=== PATIENT | female | born 1980 | race Caucasian/White ===

== ENCOUNTER → 2020-04-28 | Outpatient (CLI) | payer MEDICAID ==
[2014-04-19 21:22] VITALS: BP 133/79
--- NOTE | 2020-04-28 17:32 | KCIC ---
STUDY: MRI of the left shoulder without contrast INDICATION: Left shoulder pain. Limited range of motion. COMPARISON: Left shoulder radiographs 08/12/2019 TECHNIQUE: Multiplanar MR imaging of the left shoulder performed without the use of intravenous or intra-articular contrast. FINDINGS: The study is limited due to motion despite repeat sequence acquisition. AC joint: Minimal AC joint arthrosis. Minimal edema/fluid signal within the subacromial subdeltoid bursa but not indicative of bursitis. Rotator cuff: Even with motion artifact it can be confidently determined that there is no high-grade or full-thickness tear. No advanced tendinosis is appreciated. Normal muscular bulk and signal. Labrum: No definite tear. Probable thin sublabral recess, image 12 series 10. Long head biceps tendon: Intact and normally located. Cartilage: Poorly evaluated but no full-thickness defect is seen. Bones: No acute fracture or aggressive marrow signal abnormality. Miscellaneous: Mild edema-like signal at the rotator interval. The axillary soft tissues are within normal limits. No significant shoulder joint effusion. Impression: 1. The study is limited due to motion despite attempts at repeat imaging. 2. No abnormality seen to involve the rotator cuff, long head biceps tendon or labrum to account for the patient's symptoms. 3. Mild edema-like signal at the rotator interval is nonspecific but adhesive capsulitis could present in this manner (image 14 series 10). Electronically signed by: TREY RHODES MD (04/28/2020 5:30 PM) [id number]
== END | disposition home or self-care (01) ==
LOC: KCIC MRI 12:46
PROVIDERS: ATTEND Family Medicine
DX: M19.012 Primary osteoarthritis, left shoulder (principal); M75.02 Adhesive capsulitis of left shoulder
CPT/HCPCS: 73221

== ENCOUNTER → 2020-05-31 | Outpatient (CLI) | payer MEDICAID ==
[2014-04-19 21:22] VITALS: BP 133/79
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
== END ==
LOC: KCIC MRI 13:12
PROVIDERS: ATTEND Physician Assistant
DX: S69.92XA Unspecified injury of left wrist, hand and finger(s), initial encounter (principal); M67.432 Ganglion, left wrist; X58.XXXA Exposure to other specified factors, initial encounter; Y93.89 Activity, other specified; Y92.89 Other specified places as the place of occurrence of the external cause; Y99.8 Other external cause status
CPT/HCPCS: 73221

== ENCOUNTER → 2020-06-02 | Outpatient (CLI) | payer MEDICAID ==
[2014-04-19 21:22] VITALS: BP 133/79
--- NOTE | 2020-06-02 15:56 | KCIC ---
MRI Cervical Spine Without Contrast History:Cervical radiculopathy, posterior neck pain, headaches, left upper extremity pain and numbness Technique: Multiplanar, multi sequential noncontrast MR imaging was performed of the cervical spine. Comparison: None Findings: There is motion degradation. Cervical cord caliber is within normal limits without defined or expansile signal abnormality, limited evaluation for subtle signal change due to motion artifact. Cervical vertebral body stature and AP alignment are preserved. There is moderate degenerative disc disease C6-7. There is trace C6-7 endplate edema likely reactive/degenerative in etiology. There is moderate mucosal thickening of the visualized inferior sphenoid sinus. C2-C3: Neural foramina and spinal canal are adequate. C3-C4: Spinal canal and neural foramina are adequate. C4-C5: Spinal canal and neural foramina are adequate. C5-C6: Neural foramina and spinal canal are adequate. C6-C7: There is disc osteophyte complex and bulge. There is buckling of the ligamentum flavum. Central canal is narrowed to about 6 to 7 mm, effacement of ventral and dorsal subarachnoid space. There is uncovertebral degenerative change, also degree of facet degenerative change. There is likely at least moderate left and probable moderate to severe right neural foramina compromise. C7-T1: Spinal canal is adequate. There is mild uncovertebral degenerative change. There is bilateral facet degenerative change. There is probable mild narrowing of the left neural foramen, right neural foramen probably adequate. Impression: 1. There is spinal stenosis on the order of 6 to 7 mm at C6-7 in part by disc osteophyte complex and bulge. There is bilateral C6-7 neural foramina compromise in part from facet and uncovertebral degenerative change. There is moderate C6-7 degenerative disc disease and mild spondylosis. 2. There is inferior sphenoid sinus mucosal thickening. Electronically signed by: Michael Eason MD (06/02/2020 3:53 PM) [facility]
== END ==
LOC: KCIC MRI 12:53
PROVIDERS: ATTEND Physician Assistant
DX: M50.123 Cervical disc disorder at C6-C7 level with radiculopathy (principal); M48.02 Spinal stenosis, cervical region; M47.812 Spondylosis without myelopathy or radiculopathy, cervical region; G56.02 Carpal tunnel syndrome, left upper limb; M25.78 Osteophyte, vertebrae
CPT/HCPCS: 72141

== ENCOUNTER → 2020-07-23 | Outpatient (CLI) | payer MEDICAID ==
[2014-04-19 21:22] VITALS: BP 133/79
[~2020-07-23] MED LIST: LEXAPRO5 MG PO; MULT-445 PO; QUET300T5 PO; methylPREDNISolone ACETATE 40 MG/ML VIAL. ONE; methylPREDNISolone ACETATE 80 MG/ML VIAL. ONE
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
== END | disposition home or self-care (01) ==
LOC: PNCL 08:49
PROVIDERS: ATTEND Anesthesiology
DX: M54.5 Low back pain (principal); M79.605 Pain in left leg; M79.604 Pain in right leg; M54.2 Cervicalgia; M25.512 Pain in left shoulder; M25.511 Pain in right shoulder; M19.90 Unspecified osteoarthritis, unspecified site; F17.210 Nicotine dependence, cigarettes, uncomplicated; Z90.49 Acquired absence of other specified parts of digestive tract; Z90.710 Acquired absence of both cervix and uterus; Z98.890 Other specified postprocedural states; Z88.0 Allergy status to penicillin; Z88.5 Allergy status to narcotic agent; Z88.8 Allergy status to other drugs, medicaments and biological substances; Z79.899 Other long term (current) drug therapy
CPT/HCPCS: 62323; J1030; J1040

== ENCOUNTER → 2020-08-30 | Outpatient (CLI) | payer MEDICAID ==
[2014-04-19 21:22] VITALS: BP 133/79
[~2020-08-30] MED LIST changes: +ACET325T9 PO; +ACET500T68 PO; +ALBU2.5V8 IH; +IOHEXOL 180 MG/ML 10 ML VIAL. ONE; +MAGN580T4 PO; +METH-562 PO; +NAPR220C4 PO; +OXYC1TAB15 PO; +PRAZ1CAP2 PO; +SENN1TAB99 PO; +VENTOLIN HFA18 GM INH
--- NOTE | 2020-08-30 10:24 | PDOC ---
Progress Note - Pain Clinic Date of Service: DOS: DATE: 08/30/20 TIME: 10:18 Diagnosis: Dx: Lumbar radiculopathy with lumbar degenerative disc disease Cervical radiculopathy with cervical degenerative disc disease History or Present Illness: HPI: 40-year-old female returns follow-up status post lumbar epidural steroid action x1. Patient reports that she was initially doing better but injured her back when she was standing up from a seated position and struck her low back on the edge of the chair with some force. Prior to that patient was doing better with distance walking sleeping better at night standing for longer periods doing household activities greater ease and comfort and traveling with greater ease as well. Pain is returned now after the injury of her back which was about 2 weeks ago. Patient did have an MRI scan dated July 29 showing bilateral foraminal stenoses with impingement of the exiting L5 nerve roots at L5-S1 also L4-5 showing mild bilateral neuroforaminal narrowing with encroachment of the exiting L4 nerve roots. We discussed the results of the MRI scan with the patient today. Patient does have some pain base the neck and shoulders as previously. Patient reports no new motor or sensory deficits no new bowel or bladder incontinence or other complaints. Physical Exam: VS: Blood pressure is 116/78 pulse 78 respirations 18 temperature 97.1 F height is 5 foot 1 inch weight 166 pounds PE: PHYSICAL EXAMINATION: GENERAL: The patient is awake, alert, oriented, appropriate, very pleasant demeanor HEENT: Shows normocephalic, atraumatic. Extraocular movements are intact and symmetrical. Oral cavity: Mucous membranes moist and pink. NECK: Shows anterior throat supple without palpable lymphadenopathy noted. Swallow reflex symmetrical. CHEST: Shows normal on inspection. Breath sounds are clear bilaterally. HEART: Shows S1, S2 clear. No murmurs auscultated. ABDOMEN: Soft, nontender, nondistended, obese. No palpable organomegaly is noted. No rebound or guarding demonstrated. BACK: Shows spine grossly in the midline. Normal-appearing cervical lordotic curvature. There is slightly increased thoracic kyphosis, some minor flattening of the lumbar lordotic curvature. Lumbar paraspinous muscles show symmetrical on inspection, on palpation shows some moderate tenderness diffusely throughout the upper, middle and lower distribution of the paraspinous muscles without specific trigger points, without radiation of pain. The patient has good rotational motion of the lumbar spine, both laterally as well as extension and flexion without significant difficulty. No tenderness over the spinous processes, sacrum or sacroiliac regions. EXTREMITIES: Lower extremities show deep tendon reflexes 1+ in the patellar and tendo calcaneus tendons. Motor exam is 4 on a scale of 5 with right dorsiflexion, extension, quadriceps and hamstring flexion and 4/5 on the left. Peripheral pulses are 1+ posterior tibial. No peripheral edema is noted bilaterally. Lower extremities are warm and dry to touch, equal in color and appearance. SKIN: Shows warm and dry, good turgor. No edema. No sores, rashes or bruising throughout. Procedure: Procedure: Options were discussed with the patient. Patient will chart reviews her current medication regimen updated current review of systems updated today as well. We will proceed with a second lumbar epidural steroid traction today with fluoroscopic guidance. Risks were discussed including but not limited to: Blee ding, infection, possibility of epidural hematoma and subsequent neurological compromise, dural puncture, headaches, spinal cord and/or nerve damage, side effects of steroid medication, and poor results regarding pain control. Patient understands wished to proceed. Patient will return to clinic in approximate 2 weeks for follow-up, was counseled as return appointment activity level, and side effects to be aware of. Medication Injected: Med Injected: Procedure is lumbar epidural steroid injection under local anesthetic using sterile prep and drape at the L4-5 level using C-arm fluoroscopic guidance in both AP and lateral views medications injected is 120 mg Depo-Medrol + 10 mL preservative-free normal saline and 2 mL contrast- condition at discharge is stable patient tolerated procedure well had no complications. Condition at Discharge: Condition at Discharge: Condition at discharge stable, patient tolerated the procedure well and had no complications. ROMMEL SOTOMAYOR MD Aug 30, 2020 10:24
== END | disposition home or self-care (01) ==
LOC: PNCL 09:26
PROVIDERS: ATTEND Anesthesiology
DX: M51.16 Intervertebral disc disorders with radiculopathy, lumbar region (principal); M50.10 Cervical disc disorder with radiculopathy, unspecified cervical region; F17.210 Nicotine dependence, cigarettes, uncomplicated; Z79.899 Other long term (current) drug therapy; Z88.0 Allergy status to penicillin; Z88.5 Allergy status to narcotic agent; Z88.8 Allergy status to other drugs, medicaments and biological substances
CPT/HCPCS: 62323; J1030; J1040; Q9965

== ENCOUNTER → 2020-10-25 | Outpatient (CLI) | payer MEDICAID ==
[2014-04-19 21:22] VITALS: BP 133/79
[~2020-10-25] MED LIST changes: -ACET325T9 PO; -ACET500T68 PO; -ALBU2.5V8 IH; +BUPIVACAINE MPF 0.25% 10 ML VIAL. ONE; -MAGN580T4 PO; -METH-562 PO; -NAPR220C4 PO; -OXYC1TAB15 PO; -PRAZ1CAP2 PO; -SENN1TAB99 PO; -VENTOLIN HFA18 GM INH; -methylPREDNISolone ACETATE 40 MG/ML VIAL. ONE
--- NOTE | 2020-10-25 10:11 | PDOC ---
Progress Note - Pain Clinic Date of Service: DOS: DATE: 10/25/20 TIME: 10:08 Diagnosis: Dx: Lumbar radiculopathy with lumbar degenerative disc disease Cervical radiculopathy cervical degenerative disc disease History or Present Illness: HPI: 40-year-old female returns follow-up status post lumbar epidural steroid action x2. Patient reports about 20% improvement overall with some minimal decrease in pain after last injection. Patient reports the pain is in the low back rating left posterior gluteus posterior lateral thigh lateral anterior thigh anteromedial thigh medial lower leg as well as the posterior calf patient wanted aching and sharp tingling burning and stabbing worse with repetitive motions bending stooping which she is required to do at her place of employment. P atient reports her pain is a 9 on scale 10 is worse with the past week 7 on average 5 its least is a 7 today patient scribes as aching and sharp in the low back rating the left lower extremity and posterior gluteus posterior thigh lateral thigh anterior thigh posterior calf patient reports a stabbing pain that is tingling and worse with walking standing better with sitting or laying down generally does not awaken her from sleep at night. Patient reports no new motor or sensory deficits no new bowel or bladder incontinence or other complaints. Physical Exam: VS: Blood pressure is 120/80 pulse 77 respirations 18 temperature 98.1 F height 5 foot 1 inch which is 172 pounds. PE: PHYSICAL EXAMINATION: GENERAL: The patient is awake, alert, oriented, appropriate, very pleasant demeanor HEENT: Shows normocephalic, atraumatic. Extraocular movements are intact and symmetrical. Patient wearing eyeglasses. Oral cavity: Mucous membranes moist and pink. Dentition is intact. NECK: Shows anterior throat supple without palpable lymphadenopathy noted. Swallow reflex symmetrical. CHEST: Shows normal on inspection. Breath sounds are clear bilaterally, no rales or rhonchi. HEART: Shows S1, S2 clear. No murmurs auscultated. ABDOMEN: Soft, nontender, nondistended, obese. No palpable organomegaly is noted. No rebound or guarding demonstrated. BACK: Shows spine grossly in the midline. Normal-appearing cervical lordotic curvature. There is slightly increased thoracic kyphosis, some minor flattening of the lumbar lordotic curvature. Lumbar paraspinous muscles show symmetrical on inspection, on palpation shows some moderate tenderness diffusely throughout the upper, middle and lower distribution of the paraspinous muscles without specific trigger points, without radiation of pain. The patient has good rotational motion of the lumbar spine, both laterally as well as extension and flexion without significant difficulty. No tenderness over the spinous processes, sacrum or sacroiliac regions. EXTREMITIES: Lower extremities show deep tendon reflexes 1+ in the patellar and tendo calcaneus tendons. Motor exam is 4 on a scale of 5 with right dorsiflexion, extension, quadriceps and hamstring flexion and 4/5 on the left. Peripheral pulses are 1+ posterior tibial. No peripheral edema is noted bilaterally. Lower extremities are warm and dry to touch, equal in color and appearance. SKIN: Shows warm and dry, good turgor. No edema. No sores, rashes or bruising throughout. Procedure: Procedure: Options were discussed with the patient. Patient chart reviews her current medi cation regimen updated current review of systems updated today as well. We will proceed with a left L5-S1 transforaminal epidural injection today with fluoroscopic guidance. Risks were discussed including but not limited to bleeding infection possibility of epidural hematoma and subsequent neurological compromise dural puncture headache spinal cord and nerve damage side effects of steroid medication exposure to fluoroscopy potential injection of the vertebral artery at the level of permanent ischemic damage as well as poor results regarding pain control. Patient understands wished to proceed. Return to clinic in approximate 2 weeks for follow-up, was counseled as return appointment activity level and side effects beware. We will also order MRI scan lumbar spine today for follow-up she is only had plain films done at this point. Medication Injected: Med Injected: Under sterile prep and drape patient was placed in prone position using C-arm fluoroscopic guidance to identify the L5-S1 distribution oblique and slightly cephalad angled C arm. The left L5-S1 target was identified and using lidocaine for anesthetizing the skin 22-gauge Thea pencil point needle was then used to enter the skin and into the subcutaneous tissues using direct C-arm fluoroscopic guidance to guide the needle into the transforaminal aspect of the left L5-S1 vertebrae this was confirmed with lateral views showing the needle tip in the superior aspect of the paravertebral region. Aspiration was noted to be negative, -1.5 cc of contrast was then injected with good spread both medially into the epidural space as well as laterally along the nerve root without uptake and without distribution and uptake on digital subtraction. At this time, a solution containing 2 cc of 0.25% bupivacaine and 80 mg of Depo- Medrol was then injected. Needle was withdrawn and sterile bandage was applied. Patient tolerated procedure well had no immediate complications Condition at Discharge: Condition at Discharge: Condition at discharge stable, patient tolerated procedure well and had no complications. ROMMEL SOTOMAYOR MD Oct 25, 2020 10:11
--- NOTE | 2020-10-25 10:12 | PDOC4 ---
PROCEDURE Procedure Patient was consented for left L5-S1 transforaminal epidural steroid injection. This were discussed including but not limited to bleeding infection possibility of epidural hematoma and subsequent neurological compromise dural puncture headache spinal cord and/or nerve damage potential injection the vertebral artery at that level and permanent ischemic damage as well as side effects steroid medication opposed to fluoroscopy and poor results regarding pain control. Patient understands wished to proceed. Under sterile prep and drape patient was placed in prone position using C-arm f luoroscopic guidance to identify the L5-S1 distribution oblique and slightly cephalad angled C arm. The left L5-S1 target was identified and using lidocaine for anesthetizing the skin 22-gauge Thea pencil point needle was then used to enter the skin and into the subcutaneous tissues using direct C-arm fluoroscopic guidance to guide the needle into the transforaminal aspect of the left L5-S1 vertebrae this was confirmed with lateral views showing the needle tip in the superior aspect of the paravertebral region. Aspiration was noted to be negative, -1.5 cc of contrast was then injected with good spread both medially into the epidural space as well as laterally along the nerve root without uptake and without distribution and uptake on digital subtraction. At this time, a solution containing 2 cc of 0.25% bupivacaine and 80 mg of Depo- Medrol was then injected. Needle was withdrawn and sterile bandage was applied. Patient tolerated procedure well had no immediate complications ROMMEL SOTOMAYOR MD Oct 25, 2020 10:12
== END | disposition home or self-care (01) ==
LOC: PNCL 09:29
PROVIDERS: ATTEND Anesthesiology
DX: M51.16 Intervertebral disc disorders with radiculopathy, lumbar region (principal); M50.10 Cervical disc disorder with radiculopathy, unspecified cervical region; F17.210 Nicotine dependence, cigarettes, uncomplicated; Z79.899 Other long term (current) drug therapy; Z88.0 Allergy status to penicillin; Z88.5 Allergy status to narcotic agent; Z88.8 Allergy status to other drugs, medicaments and biological substances
CPT/HCPCS: 64483; J1040; J3490; Q9965

== ENCOUNTER → 2020-11-09 | Outpatient (CLI) | payer MEDICAID ==
[2014-04-19 21:22] VITALS: BP 133/79
[~2020-11-09] MED LIST changes: -BUPIVACAINE MPF 0.25% 10 ML VIAL. ONE; -IOHEXOL 180 MG/ML 10 ML VIAL. ONE; -methylPREDNISolone ACETATE 80 MG/ML VIAL. ONE
--- NOTE | 2020-11-09 11:25 | KCIC ---
MR LUMBAR SPINE WO [id number] History: Reason: LEFT LUMBAR RADICULOPATHY / Spl. Instructions: / History: 2019 injury. Left leg rad iates pain. Technique: Multiplanar, multi sequential MR imaging was performed of the lumbar spine. Comparison: None Findings: Normal vertebral body height and alignment. No fracture. Conus terminates at the normal location. No evidence of nerve root clumping. Bilateral small ovarian cystic lesions measure 1.3 on the right and approximately 1.9 on the left par tially imaged, likely ovarian follicles. L1-L2: No canal or neuroforaminal narrowing. L2-L3: No canal or neuroforaminal narrowing. L3-L4: Broad-based disc bulge. Mild facet arthropathy. No canal narrowing. Mild subarticular recess narrowing. No neuroforaminal narrowing. L4-L5: Broad-based disc bulge. Mild facet arthropathy. No canal narrowing. Mild subarticular recess narrowing. Superimposed right foraminal disc protrusion. Mild bilateral neuroforaminal narrowing. L5-S1: Central disc protrusion. Moderate facet arthropathy. No canal narrowing. Moderate bilateral n euroforaminal narrowing, left greater than right. Impression: 1. Multilevel lumbar spondylosis most prominent L5-S1. 2. Neuroforaminal narrowing most prominent L5-S1. Electronically signed by: Jorge Talley DO (11/09/2020 11:23 AM) [id number]
== END | disposition home or self-care (01) ==
LOC: KCIC MRI 08:31
PROVIDERS: ATTEND Anesthesiology
DX: M47.26 Other spondylosis with radiculopathy, lumbar region (principal); M48.061 Spinal stenosis, lumbar region without neurogenic claudication; F17.210 Nicotine dependence, cigarettes, uncomplicated; Z79.899 Other long term (current) drug therapy; Z88.0 Allergy status to penicillin; Z88.5 Allergy status to narcotic agent; Z88.8 Allergy status to other drugs, medicaments and biological substances
CPT/HCPCS: 72148

== ENCOUNTER 2020-12-14 08:03 | Day surgery (SDC) | payer MEDICAID ==
[~2020-12-14] VITALS: Ht 152.4 cm; Wt 77.0 kg
[~2020-12-14 08:03] MED LIST changes: +ACET325T9 PO; +ACET500T68 PO; +ALBU2.5V8 IH; +BACITRACIN 50,000 UNIT in IV NORMAL SALINE 1000ML BAG 1,000 ML IRR ONE; +BUPIVACAINE MPF 0.5% 30 ML VIAL. ONE; +CLINDAMYCIN 900MG PREMIX 50 ML IV PRN; +GELATIN SPONGE SIZE 100. ONE; +HYDROmorphone 2 MG/ML VIAL IVP PRN; +IV RINGERS,LACTATED 1000ML 1,000 ML IV SCH; +LIDOCAINE 1%/EPI 1:100,000 20 ML VIAL. ONE; +MAGN580T4 PO; +MORPHINE SULFATE 2 MG/ML VIAL. IVP PRN; +NAPR220C4 PO; +PRAZ1CAP2 PO; +PROCHLORPERAZINE 10 MG/2 ML VIAL. IVP PRN; +THROMBIN TOPICAL 20,000 UNIT SPRAY.SYRN KIT TP ONE; +VENTOLIN HFA18 GM INH; +fentaNYL PF VIAL 100 MCG/2 ML VIAL IVP PRN
[2020-12-14] MEDS ORDERED: SUCCINYLCHOLINE 200 MG/10 ML VIAL. ONE (09:09)
[2020-12-14] MEDS ORDERED: PROPOFOL 10 MG/ML (20ML) VIAL. IV ONE (09:09)
[2020-12-14] MEDS ORDERED: LIDOCAINE 2% PF 5 ML VIAL. ONE (09:09)
[2020-12-14] MEDS ORDERED: ROCURONIUM 50 MG/5 ML VIAL. ONE (09:10)
[2020-12-14] MEDS ORDERED: fentaNYL PF VIAL 250 MCG/5 ML VIAL ONE (09:10)
[2020-12-14] MEDS ORDERED: MIDAZOLAM HCL/PF 2 MG/2 ML VIAL. ONE (09:10)
[2020-12-14] MEDS ORDERED: 0.9 % SODIUM CHLORIDE 20 ML VIAL. IJ ONE (09:15)
[2020-12-14] MEDS ORDERED: REMIFENTANIL 1 MG VIAL. IV ONE (09:15)
[2020-12-14] MEDS ORDERED: PHENYLEPHRINE 10 MG/ML VIAL. ONE (09:52)
[2020-12-14] MEDS ORDERED: DEXAMETHASONE SOD PHOS 4 MG/ML VIAL ONE (11:01)
[2020-12-14] MEDS ORDERED: ONDANSETRON PF 4 MG/2 ML VIAL. ONE (11:01)
[2020-12-14] MEDS ORDERED: SEVOFLURANE > 120 MINUTES. IH ONE (11:15)
[2020-12-14] MEDS ORDERED: PROPOFOL 100 ML IV ONE (11:42)
--- NOTE | 2020-12-14 12:43 | PDOC ---
BRIEF OPERATIVE NOTE Date: Dec 14, 2020 Pre-Op Diagnosis lumbar radiculopathy, L5-S1 foraminal stenosis Post-Op Diagnosis same Procedure Performed left L5-S1 microdecompression Anesthesia Type: General Blood Loss 10mL Specimens Obtained decompression Findings stenosis left L5-S1, neuromonitoring at least baseline throughout procedure Complications none apparent ANN FOY MD Dec 14, 2020 12:42
[2020-12-14] MEDS ORDERED: fentaNYL PF VIAL 100 MCG/2 ML VIAL ONE (12:46)
[2020-12-14] MEDS ORDERED: OXYC1TAB15 PO (13:14)
[2020-12-14] MEDS ORDERED: METH-562 PO (13:16)
[2020-12-14] MEDS ORDERED: SENN1TAB99 PO (13:18)
[2020-12-14 13:35] VITALS: BP 102/45
[2020-12-14] MEDS ORDERED: oxyCODONE/APAP 5/325 1 TAB TABLET PO ONE (13:45)
--- NOTE | 2020-12-14 13:50 | OP ---
DATE OF SURGERY: 12/14/2020 SURGEON: Too Zayas MD FLOTATION OPERATOR: None. PREOPERATIVE DIAGNOSIS: Left L5-S1 foraminal stenosis with radiculopathy. POSTOPERATIVE DIAGNOSIS: Left L5-S1 foraminal stenosis with radiculopathy. ANESTHESIA: General. COMPLICATIONS: None, intraprocedurally. INDICATION FOR PROCEDURE: The patient is a 40-year-old female who presents with intractable lumbar radiculopathy localized to stenosis on the left, L5-S1. This has been refractory to multiple conservative treatments. Please refer to the patient's chart for additional detail. DESCRIPTION OF PROCEDURE: After informed consent was obtained, the patient was brought into the operating room. She was placed under general anesthesia. Clindamycin was utilized as a prophylactic antibiotic. She was placed prone on the Jeramy frame and all pressure points were checked and padded appropriately. An appropriate incision location was localized with fluoroscopy. The lumbar region was prepped and draped in the usual sterile fashion. A vertical incision centered over the region of lumbar 5 and sacral 1 was made with a 10 blade scalpel. Monopolar electrocautery was utilized to dissect the avascular midline to approach the spinous processes of the lumbar 5 and sacral 1 and the dissection was carried out laterally to the left across the lamina at this location. The level was again verified with fluoroscopy prior to the initiation of decompression and a hemilaminotomy with medial facetectomy and foraminotomy was performed, the pneumatic drill as well as Kerrison rongeurs. The underlying ligament was gently dissected from the neural elements with blunt nerve hook and a Wharton and removed with Kerrison rongeurs. Upon completion of this, the adjacent neural elements were noted to be very well decompressed as verified with direct visualization as well as palpation with a blunt nerve hook and a Wharton. Upon completion of this procedure, hemostasis was achieved with FloSeal, cottonoids generous irrigation and some use of bipolar electrocautery. It was noted that neuromonitoring potentials were at least baseline throughout the entire procedure. The wound was generously irrigated with antibiotic irrigation prior to the final closure, the muscles and fascia were then reapproximated with 0 Vicryl in a simple interrupted fashion. Subcutaneous tissues were reapproximated with 2-0 Vicryl in interrupted inverted fashion. Skin was reapproximated with 4-0 Vicryl in a running subcuticular fashion. Mastisol and Steri-Strips were applied and the wound was dressed with Telfa, 4 x 4's, and Tegaderm. At the end of the procedure, all needle and sponge counts were correct x 2. The patient was extubated in the operating room and taken to recovery in stable condition. There were no intraprocedural complications apparent. JADYN/FRANK DR: Mona TID: [id number]
--- NOTE | 2020-12-20 11:25 | PATHOLOGY ---
[facility] Accession Number: [id number] . 01 Material submitted: . vertebral column - DECOMPRESSION . 01 Clinical history: . L5 S1 FORAMINAL STENOSIS LUMBAR . 02 Diagnosis: Bone and soft tissue "L5/S1" decompression: - Fragments of calcified bone, hyaline cartilage and fibrocartilage with reactive features. - Negative for malignancy. (MLK:pit; 12/17/2020) QTP 12/20/2020 1024 Local . 02 Electronically signed: . Tolu Coello MD, Pathologist NPI- [id number] . 01 Gross description: . The specimen is received in formalin, labeled "Fela Rucker", "decompression". Received are multiple fragments of slightly gritty, glistening pale white-lazcano bone/soft tissue, measuring 2.2 x 1.8 x 0.3 cm in aggregate dimensions. The specimen is filtered and entirely submitted in cassette A1, following light decalcification. (SNA; 12/16/2020) NAKIA/SHELLEY 12/16/2020 0852 Local . 02 Pathologist provided ICD-10: M99.73 . 02 CPT . 393608, [id number] Specimen Comment: A courtesy copy of this report has been sent to [phone] Specimen Comment: [id number] Specimen Comment: Report sent to DR FOY / DR BARRETT Performed at: 01 [facility] [address], [place] [id number] MD Anoop Navas MD Phone: [phone] Performed at: 02 [facility] [address] [place], [place] [id number] MD Jose Luis Watt MD Phone: [phone]
== END 2020-12-14 14:34 | disposition home or self-care (01) ==
LOC: SURG 08:03
PROVIDERS: ATTEND Neurological Surgery
DX: M48.07 Spinal stenosis, lumbosacral region (principal); M54.16 Radiculopathy, lumbar region; J44.9 Chronic obstructive pulmonary disease, unspecified; F41.9 Anxiety disorder, unspecified; F32.9 Major depressive disorder, single episode, unspecified; F17.210 Nicotine dependence, cigarettes, uncomplicated; Z90.49 Acquired absence of other specified parts of digestive tract; Z90.710 Acquired absence of both cervix and uterus; Z98.890 Other specified postprocedural states; Z88.0 Allergy status to penicillin; Z88.5 Allergy status to narcotic agent; Z88.8 Allergy status to other drugs, medicaments and biological substances; Z20.822 Contact with and (suspected) exposure to COVID-19
CPT/HCPCS: 36415; 63047; 86850; 86900; 86901; 87426; 97161; A4213; A4930; J0330; J1100; J2250; J2370; J2405; J2704; J3010; J3490; J7030; 76000; 88304; 88311; A4222; A4452

== ENCOUNTER → 2021-05-10 | Outpatient (CLI) | payer MEDICAID ==
[~2021-05-10] MED LIST changes: -BACITRACIN 50,000 UNIT in IV NORMAL SALINE 1000ML BAG 1,000 ML IRR ONE; -BUPIVACAINE MPF 0.5% 30 ML VIAL. ONE; -CLINDAMYCIN 900MG PREMIX 50 ML IV PRN; -GELATIN SPONGE SIZE 100. ONE; -HYDROmorphone 2 MG/ML VIAL IVP PRN; -IV RINGERS,LACTATED 1000ML 1,000 ML IV SCH; -LIDOCAINE 1%/EPI 1:100,000 20 ML VIAL. ONE; +METH-562 PO; -MORPHINE SULFATE 2 MG/ML VIAL. IVP PRN; +OXYC1TAB15 PO; -PROCHLORPERAZINE 10 MG/2 ML VIAL. IVP PRN; +SENN1TAB99 PO; -THROMBIN TOPICAL 20,000 UNIT SPRAY.SYRN KIT TP ONE; -fentaNYL PF VIAL 100 MCG/2 ML VIAL IVP PRN
--- NOTE | 2021-05-10 15:10 | KCIC ---
Examination: MRI of the right knee without contrast HISTORY: History of right knee pain, swelling COMPARISON: None available TECHNIQUE: Multiplanar, multisequence MR imaging of the right knee was performed without contrast FINDINGS: The anterior cruciate ligament is not completely identified proximally. Some of the fibers appear int act.. The posterior cruciate ligament appears intact. Mild increased T2 signal identified in the post erior horn of the medial meniscus. The lateral meniscus appears intact. The medial collateral ligamen t appears intact. Lateral collateral ligamentous complex including the fibular collateral ligament, b iceps femoris and popliteus tendon appears intact. The medial, lateral retinaculum appears intact. Small knee joint effusion. The extensor mechanism appears intact. Mild increased T2 signal identified in the Hoffa's fat pad deep to the infrapatellar tendon. Mild sup erficial fraying of cartilage identified in the medial, lateral, patellofemoral compartments. IMPRESSION: 1. The anterior cruciate ligament is not completely identified proximally. Some of the fibers appear intact. Differential includes chronic ACL tear or ACL insufficiency or attenuated proximal portion o f the anterior cruciate ligament. Correlate clinically. 2. Mild increased T2 signal identified in the posterior horn of the medial meniscus question a tear. 3. Mild increased T2 signal identified in the Hoffa's fat pad deep to the infrapatellar tendon could be secondary to impingement. 4. Small knee joint effusion. 5. Grade I chondromalacia medial, lateral, patellofemoral condyle. Electronically signed by: Hernan Anaya MD (05/10/2021 3:08 PM) [id number]
== END ==
LOC: KCIC MRI 13:08
PROVIDERS: ATTEND Family Medicine
DX: M25.461 Effusion, right knee (principal); M94.261 Chondromalacia, right knee; M79.4 Hypertrophy of (infrapatellar) fat pad
CPT/HCPCS: 73721

== ENCOUNTER → 2021-05-17 | Outpatient (CLI) | payer MEDICAID ==
--- NOTE | 2021-05-17 10:23 | KCIC ---
EXAMINATION: Magnetic resonance imaging (MRI) of the lumbar spine without contrast 05/17/2021 8:45 AM HISTORY: Lumbago, radiculopathy TECHNIQUE: Multiplanar multi-weighted MRI of the lumbar spine was performed without intravenous contr ast using the standard lumbar spine protocol. Contrast information: None administered. COMPARISON: MRI lumbar spine 11/09/2020 FINDINGS: There is 2 mm retrolisthesis of L3 on L4 and L4 on L5. Findings are stable. Vertebral bodies demonstr ate normal signal intensity on all sequences. There are no compression fractures. The conus medulla ris terminates at the level of L1. The distal spinal cord signal intensity is normal. There is disc desiccation at L3-L4, L4-L5 and L5-S1. Annular fissures identified at the L5-S1 level. Limited views of the abdomen and pelvis show no soft tissue abnormality. The aorta is normal. L1-L2: The disc is normal in configuration. There is no facet arthropathy. There is no neuroforaminal stenosis. There is no spinal canal stenosis. L2-L3: There is a right central disc extrusion extending to the right foraminal zone. No significant facet arthropathy. Mild to moderate right neural foraminal stenosis. There is right lateral recess st enosis. Mild spinal canal stenosis which is progressed. Findings are progressed since the prior exami [facility]. L3-L4: Mild disc bulge. Mild facet arthropathy. Mild bilateral neuroforaminal stenosis. Mild spinal c anal stenosis secondary to epidural lipomatosis/congenital narrowing of the spinal canal. Findings ar e stable. L4-L5: There is a circumferential disc bulge. There is central disc protrusion. Mild facet arthropath y. Moderate bilateral neuroforaminal stenosis, right greater than left. Mild spinal canal stenosis. F indings are stable. L5-S1: There is a disc bulge with central disc protrusion. Mild/moderate facet arthropathy ligamentum flavum infolding. Moderate severe bilateral neuroforaminal stenosis, stable from prior examination. No significant spinal canal stenosis. IMPRESSION: Mild degenerative changes of the lumbar spine with new right central disc extrusion at L2-3 extending into the right neural foramen resulting in mild to moderate right neuroforaminal stenosis and mild s dominci canal stenosis with right lateral recess stenosis. Electronically signed by: Amy Groves MD (05/17/2021 10:20 AM) [id number]
== END ==
LOC: KCIC MRI 08:04
PROVIDERS: ATTEND Neurological Surgery
DX: M47.27 Other spondylosis with radiculopathy, lumbosacral region (principal); M51.17 Intervertebral disc disorders with radiculopathy, lumbosacral region; M43.16 Spondylolisthesis, lumbar region; M48.07 Spinal stenosis, lumbosacral region
CPT/HCPCS: 72148

== ENCOUNTER → 2021-06-27 | Outpatient (CLI) | payer MEDICAID ==
[~2021-06-27] MED LIST changes: +BLAC40CA PO; +BREO ELLIPTA 21 EACH IH; +BUPR150T8 PO; +CYCL5TAB PO; +HYDR-2759 PO; +HYDR-2761 PO; +HYDR2TAB31 PO; +QUET400T4 PO; +SENN-200 PO
[2021-06-27 13:03] LABS: BASO # 0.1 x10^3/uL (0.0-0.2); BASO % 1 % (0-3); EOS # 0.2 x10^3/uL (0.0-0.7); EOS % 3 % (0-3); HEMATOCRIT 40.7 % (36.0-47.0); HEMOGLOBIN 13.8 g/dL (12.0-15.5); LYMPH # 3.1 x10^3/uL (1.0-4.8); LYMPH % 46 % (24-48); MEAN CORPUSCULAR HEMOGLOBIN 30 pg (25-35); MEAN CORPUSCULAR HGB CONC 34 g/dL (31-37); MEAN CORPUSCULAR VOLUME 89 fL (79-100); MONO # 0.5 x10^3/uL (0.0-1.1); MONO % 7 % (0-9); NEUT # 2.9 x10^3/uL (1.8-7.7); NEUT % 43 % (31-73); PLATELET COUNT 263 x10^3/uL (140-400); RED BLOOD COUNT 4.55 x10^6/uL (3.50-5.40); RED CELL DISTRIBUTION WIDTH 14.3 % (11.5-14.5); WHITE BLOOD COUNT 6.8 x10^3/uL (4.0-11.0)
[2021-06-27 13:19] LABS: ALBUMIN 3.6 g/dL (3.4-5.0); ALBUMIN/GLOBULIN RATIO 0.9 (1.0-1.7); CALCIUM 8.8 mg/dL (8.5-10.1); CREATININE 1.1 mg/dL (0.6-1.0); GFR 54.5; POTASSIUM 3.7 mmol/L (3.5-5.1); TOTAL BILIRUBIN 0.3 mg/dL (0.2-1.0); TOTAL PROTEIN 7.6 g/dL (6.4-8.2)
[2021-06-27 13:20] LABS: PROTHROMBIN TIME PATIENT 12.7 SEC (11.7-14.0)
[2021-06-28 01:12] LABS: HEMOGLOBIN A1C 5.6 % (4.8-5.6)
== END ==
LOC: SURGPAT 12:17
PROVIDERS: ATTEND Neurological Surgery
DX: M48.061 Spinal stenosis, lumbar region without neurogenic claudication (principal); Z01.812 Encounter for preprocedural laboratory examination
CPT/HCPCS: 36415; 80053; 83036; 85025; 85610; 85730; 87641

== ENCOUNTER → 2021-07-01 | Outpatient (CLI) | payer MEDICAID ==
[~2021-07-01] MED LIST changes: +HYDR-2765 PO
== END ==
LOC: LAB 12:58
PROVIDERS: ATTEND Neurological Surgery
DX: Z01.812 Encounter for preprocedural laboratory examination (principal); Z20.822 Contact with and (suspected) exposure to COVID-19; M48.061 Spinal stenosis, lumbar region without neurogenic claudication; M51.06 Intervertebral disc disorders with myelopathy, lumbar region
CPT/HCPCS: U0003; U0005

== ENCOUNTER 2021-07-05 07:29 | Day surgery (SDC) | payer MEDICAID ==
[2021-06-27 13:10] VITALS: BP 129/91
[~2021-07-05] VITALS: Ht 160 cm; Wt 70.9 kg
[~2021-07-05 07:29] MED LIST changes: -BLAC40CA PO; -BREO ELLIPTA 21 EACH IH; +BUPIVACAINE MPF 0.5% 30 ML VIAL. ONE; +CLINDAMYCIN 900MG PREMIX 50 ML IV PRN; -CYCL5TAB PO; +DEXAMETHASONE SOD PHOS 4 MG/ML VIAL ONE; +GELATIN SPONGE SIZE 100. ONE; +GLYCOPYRROLATE 1 MG/5 ML VIAL. ONE; -HYDR-2759 PO; -HYDR-2761 PO; -HYDR-2765 PO; -HYDR2TAB31 PO; +IV RINGERS,LACTATED 1000ML 1,000 ML IV SCH; +KETAMINE HCL IN NACL, ISO-OSM 50 MG/5 ML SYRINGE ONE; +LIDOCAINE 1%/EPI 1:100,000 20 ML VIAL. ONE; +LIDOCAINE 2% PF 5 ML VIAL. ONE; +MIDAZOLAM HCL/PF 2 MG/2 ML VIAL. ONE; +MORPHINE SULFATE 2 MG/ML INJ. IVP PRN; +NEOSTIGMINE METHYLSULFATE 5 MG/5 ML SYRINGE. ONE; +ONDANSETRON PF 4 MG/2 ML VIAL. ONE; +PHENYLEPHRINE 10 MG/ML VIAL. ONE; +PROPOFOL 10 MG/ML (20ML) VIAL. IV ONE; +PROPOFOL 50 ML IV ONE; +REMIFENTANIL 1 MG VIAL. IV ONE; +ROCURONIUM 50 MG/5 ML VIAL. ONE; -SENN-200 PO; +SEVOFLURANE > 120 MINUTES. IH ONE; +THROMBIN TOPICAL 20,000 UNIT SPRAY.SYRN KIT TP ONE; +VANCOMYCIN 1 GM VIAL. ONE; +fentaNYL PF VIAL 100 MCG/2 ML VIAL IVP PRN; +fentaNYL PF VIAL 100 MCG/2 ML VIAL ONE
[2021-07-05 07:57] VITALS: BP 140/80
[2021-07-05] MEDS ORDERED: PHENYLEPHRINE 10 MG/ML VIAL. ONE (08:13)
[2021-07-05] MEDS ORDERED: ePHEDrine PF IN SALINE 50 MG/10 ML SYRINGE. IV ONE (08:16)
[2021-07-05] MEDS ORDERED: fentaNYL PF VIAL 100 MCG/2 ML VIAL ONE (09:02)
--- NOTE | 2021-07-05 11:11 | PDOC4 ---
BRIEF OPERATIVE NOTE Date: Jul 05, 2021 Pre-Op Diagnosis recurrent disk herniation L5-S1, L5-S1 stenosis, lumbar radiculopathy Post-Op Diagnosis same Procedure Performed redo left L5-S1 hemilaminotomy with discectomy Surgeon Chana Sorority Mother Len Esteves Anesthesia Type: General Blood Loss 5mL Specimens Obtained disc and decompression Findings lateral recess and foraminal stenosis from disk herniation, scar tissue and degenerative changes, neuromontoring at least baseline throughout the procedure Complications none apparent ANN FOY MD Jul 05, 2021 11:11
[2021-07-05] MEDS ORDERED: PROCHLORPERAZINE 10 MG/2 ML VIAL. ONE (11:13)
[2021-07-05] MEDS ORDERED: SENN-200 PO (11:27)
[2021-07-05] MEDS ORDERED: CYCL5TAB PO (11:27)
[2021-07-05] MEDS ORDERED: HYDR2TAB31 PO (11:27)
[2021-07-05] MEDS: PROCHLORPERAZINE 10 MG/2 ML VIAL. IVP PRN ×2 (11:28→11:36)
[2021-07-05] MEDS ORDERED: HYDROmorphone 2 MG/ML VIAL ONE (11:31)
[2021-07-05] MEDS: HYDROmorphone 2 MG/ML VIAL IVP PRN ×2 (11:37→11:50)
[2021-07-05] MEDS ORDERED: HYDROmorphone 2 MG TABLET PO PRN (12:30)
[2021-07-05] MEDS ORDERED: SCOPOLAMINE 1.5MG PATCH. TD ONE ×2 (13:53→15:00)
[2021-07-05] MEDS ORDERED: ONDANSETRON PF 4 MG/2 ML VIAL. ONE (13:53)
[2021-07-05] MEDS ORDERED: ONDANSETRON PF 4 MG/2 ML VIAL. IVP ONE (14:10)
[2021-07-05] MEDS ORDERED: IV RINGERS,LACTATED 1000ML 1,000 ML IV ONE (15:00)
[2021-07-05] MEDS ORDERED: HYDROcodone/APAP 5/325MG 1 TAB TABLET PO ONE (15:30)
[2021-07-05 15:35] VITALS: BP 116/73
--- NOTE | 2021-07-07 16:15 | PATHOLOGY ---
[facility] Accession Number: [id number] . 01 Material submitted: . vertebral column - DISC AND DECOMPRESSION . 01 Clinical history: . LUMBAR STENOSIS LAMINECTOMY DISCECTOMY, LUMBAR FIVE SACRAL ONE . 02 Diagnosis: Segments of fibrocartilaginous, fibroadipose, and skeletal muscle tissue and bone, disc and decompression: - Degenerative changes of fibrocartilaginous tissue. - Focal fibrosis and foreign body giant cell reaction. . (JPM:[facility]; 07/07/2021) P 07/07/2021 1546 Local . 02 Comment: There is no evidence of an acute inflammatory process or malignancy. . 02 Electronically signed: . Jose Luis Watt MD, Pathologist NPI- [id number] . 01 Gross description: . The specimen is received in formalin, labeled "Fela Rosas, disc and decompression". Received are multiple segments of pale lazcano to pink-lazcano fibrous tissue admixed with fragments of gritty bone measuring 3.6 x 3.0 x 0.7 cm in aggregate dimensions. The specimen is submitted personal service representative in cassette A1, following light decalcification. ([facility]; 07/06/2021) [facility] 07/06/2021 1203 Local . 02 Pathologist provided ICD-10: M99.53 . 02 CPT . 597429, [id number] Specimen Comment: A courtesy copy of this report has been sent to [phone] Specimen Comment: [phone] Specimen Comment: Report sent to / DR BARRETT Performed at: [address], [place], [place] [id number] MD Anoop Navas MD Phone: [phone] Performed at: 02 [facility] [address] [place], [place] [id number] MD Jose Luis Watt MD Phone: [phone]
[2021-07-11] MEDS ORDERED: HYDR-2759 PO (11:23)
--- NOTE | 2021-07-12 21:50 | HP ---
DATE OF SERVICE: 07/12/2021 ADMIT DATE: 07/05/2021 CHIEF COMPLAINT: Recurrent back and left lower extremity pain. HISTORY OF PRESENT ILLNESS: The patient is a 40-year-old female, who is several months status post lumbar decompression on the left at L5-S1. She went a couple of sessions of physical therapy and subsequently did the exercises on her own. She had good benefit from her prior surgery. However, she reports that over the last couple of months, she has had recurrence of back pain with recurrence of left lower extremity pain. She denies discrete focal weakness or bowel or bladder changes. She denies right leg pain. She denies a clear inciting event or injury to precipitate the recurrent pain. PAST MEDICAL HISTORY: Reviewed. PAST SURGICAL HISTORY: She has had a recent L5-S1 right-sided decompression. FAMILY HISTORY: Noncontributory. REVIEW OF SYSTEMS: There is no weight change. Generally healthy. No change in strength or exercise tolerance. No headaches, vertigo or injury. Normal vision, no diplopia, no tearing, no scotomata, no pain. No change in hearing, no tinnitus, no bleeding, no vertigo, no epistaxis, no coryza, no obstruction, no discharge. No stiffness in the neck, no pain, no tenderness in the neck, no noted masses in the neck. No dyspnea, no wheezing, no hemoptysis, no cough. No chest pain, palpitations, syncope or orthopnea. No change in appetite, no dysphagia, no abdominal pain, no changes in bowel habits, no emesis, no melena. No urinary urgency, no dysuria, no change in the nature of urine. No weakness, no tremor, no seizures, no change in mentation, no ataxia. OBJECTIVE: GENERAL: She is 62 inches tall. She weighs 160 pounds. She rates her pain 10/10. She is awake, alert, oriented x 4. She is in no acute distress. She is cooperative with the exam. HEAD: Normocephalic and atraumatic. NECK: Supple, nontender. CARDIAC: Pulse is regular. LUNGS: Respirations are even and nonlabored. DERMATOLOGY: Skin turgor is normal. EXTREMITIES: She moves all extremities with good range of motion. Pulses are equal. No cyanosis, clubbing or edema in the extremities. NEUROLOGIC: Mentation and speech are normal. She comprehends and follows commands without difficulty. Cranial nerves 2-12 are intact bilaterally. Strength is 5/5 throughout all major muscle groups in the bilateral upper and bilateral lower extremities. Deep tendon reflexes are symmetric and nonpathologic. Sensation is intact to light touch. Cerebellar function is normal in the upper and lower extremities bilaterally. She ambulates with a normal stance and stride. IMAGING STUDIES: She has an MRI of the lumbar spine from 05/17/2021 showing some reherniation at L5-S1 in the left lateral recess and foramen. Postsurgical changes are noted. There is stenosis in the left neural foramen. ASSESSMENT AND PLAN: This is a 40-year-old female, who is status post lumbar decompression with recurrent back and left leg pain, consistent with lumbar radiculopathy of the recurrent disk at L5-S1 on the left and foraminal stenosis. Imaging findings and therapeutic options were discussed. It was felt that the patient would benefit from surgical decompression with a redo L5-S1 hemilaminotomy with diskectomy was discussed. After noting the risks, benefits and expectations of the procedure, she elects to proceed. We will arrange for this procedure to be completed. All questions answered and all in agreement. ADARSH DE LUNA: Mona TID: [id number] GABINO
--- NOTE | 2021-07-13 05:47 | OP ---
DATE OF SURGERY: 07/05/2021 SURGEON: Too Zayas MD CASTING ROOM OPERATOR: Len Esteves. PREOPERATIVE DIAGNOSES: Disk herniation at L5-S1 with stenosis with lumbar radiculopathy and back pain that is recurrent. PROCEDURE: Redo left L5-S1 hemilaminotomy with discectomy. ANESTHESIA: General. COMPLICATIONS: None. INDICATIONS FOR PROCEDURE: The patient is a 40-year-old female who several months ago underwent a left L5-S1 decompression with resolution of symptoms. She recently had recurrence of symptoms without a clear inciting event or injury. Imaging revealed a small disk herniation with stenosis left L5-S1. It was felt that surgical decompression with discectomy may be of benefit. Please refer to the patient's chart for additional detail. DESCRIPTION OF PROCEDURE: After informed consent was obtained, the patient was brought to the operating room. She was placed under general anesthesia. She was placed in prone position on the Jeramy frame. All pressure points were checked and padded appropriately. Clindamycin was instituted as a prophylactic antibiotic. Fluoroscopy was utilized to localize an appropriate incision location. The patient's prior incision was reopened with 10 blade scalpel and centered over the region of L5-S1. Dissection was carried out to the spinous processes of L5-S1 and carried out leftward across the lamina at this location. Level was again verified with fluoroscopy prior to the initiation of decompression. The previous scar tissue was gently dissected away utilizing a curette as well as pituitary rongeurs and the prior margins of the previous hemilaminotomy were exposed. This was expanded with a Kerrison rongeur and the neural elements were gently retracted medially and the discectomy was performed utilizing pituitary rongeurs. Upon completion of the expansion of the hemilaminotomy and the discectomy, neural elements were noted to be very well decompressed as verified with direct visualization as well as gentle palpation with a nerve hook and a Whitfield. Neuromonitoring potentials were noted to be improved compared to baseline upon completion. Please note that the hemilaminotomy and discectomy were performed with the intraoperative microscope. Once the procedure was complete, pristine hemostasis was achieved with FloSeal, cottonoids, generous irrigation and some use of bipolar electrocautery. The wound was generously irrigated with antibiotic irrigation prior to the final closure. The muscles and fascia were then reapproximated with 0 Vicryl in a simple interrupted fashion. Subcutaneous tissues were reapproximated with 2-0 Vicryl in interrupted inverted fashion. The skin was reapproximated with 4-0 Vicryl in a running subcuticular fashion. Mastisol and Steri-Strips were applied and the wound was dressed with Telfa, 4 x 4, and Tegaderm. At the end of the procedure, all needle and sponge counts were correct x 2. Neuromonitoring remained at least baseline and improved upon completion of the procedure. The patient was extubated in the operating room and taken to recovery in stable condition. There were no intraprocedural complications apparent. JOHN/LAURA DR: Mona TID: [id number] GABINO
== END 2021-07-05 16:22 | disposition home or self-care (01) ==
LOC: SURG 07:29
PROVIDERS: ATTEND Neurological Surgery
DX: M51.17 Intervertebral disc disorders with radiculopathy, lumbosacral region (principal); M48.061 Spinal stenosis, lumbar region without neurogenic claudication; M99.53 Intervertebral disc stenosis of neural canal of lumbar region; J44.9 Chronic obstructive pulmonary disease, unspecified; F41.9 Anxiety disorder, unspecified; F32.9 Major depressive disorder, single episode, unspecified; Z90.49 Acquired absence of other specified parts of digestive tract; Z90.710 Acquired absence of both cervix and uterus; Z98.890 Other specified postprocedural states; Z79.899 Other long term (current) drug therapy; F17.210 Nicotine dependence, cigarettes, uncomplicated; Z88.0 Allergy status to penicillin; Z88.5 Allergy status to narcotic agent; Z88.8 Allergy status to other drugs, medicaments and biological substances
CPT/HCPCS: 36415; 63030; 86850; 86900; 86901; 88304; 88311; A4364; A4930; A6258; J0780; J1100; J1170; J2250; J2370; J2405; J2704; J2710; J3010; J3490; 76000; A4452; J3370

== ENCOUNTER → 2021-07-27 | Outpatient (CLI) | payer MEDICAID ==
[2021-07-05 15:35] VITALS: BP 116/73
[~2021-07-27] MED LIST changes: -BUPIVACAINE MPF 0.5% 30 ML VIAL. ONE; -CLINDAMYCIN 900MG PREMIX 50 ML IV PRN; +CYCL5TAB PO; -DEXAMETHASONE SOD PHOS 4 MG/ML VIAL ONE; +GADOTERATE 7.5 MMOL/15ML VIAL. IVP ONE; -GELATIN SPONGE SIZE 100. ONE; -GLYCOPYRROLATE 1 MG/5 ML VIAL. ONE; +HYDR-2759 PO; +HYDR2TAB31 PO; -IV RINGERS,LACTATED 1000ML 1,000 ML IV SCH; -KETAMINE HCL IN NACL, ISO-OSM 50 MG/5 ML SYRINGE ONE; -LIDOCAINE 1%/EPI 1:100,000 20 ML VIAL. ONE; -LIDOCAINE 2% PF 5 ML VIAL. ONE; -MIDAZOLAM HCL/PF 2 MG/2 ML VIAL. ONE; -MORPHINE SULFATE 2 MG/ML INJ. IVP PRN; -NEOSTIGMINE METHYLSULFATE 5 MG/5 ML SYRINGE. ONE; -ONDANSETRON PF 4 MG/2 ML VIAL. ONE; -PHENYLEPHRINE 10 MG/ML VIAL. ONE; -PROPOFOL 10 MG/ML (20ML) VIAL. IV ONE; -PROPOFOL 50 ML IV ONE; -REMIFENTANIL 1 MG VIAL. IV ONE; -ROCURONIUM 50 MG/5 ML VIAL. ONE; +SENN-200 PO; -SEVOFLURANE > 120 MINUTES. IH ONE; -THROMBIN TOPICAL 20,000 UNIT SPRAY.SYRN KIT TP ONE; -VANCOMYCIN 1 GM VIAL. ONE; -fentaNYL PF VIAL 100 MCG/2 ML VIAL IVP PRN; -fentaNYL PF VIAL 100 MCG/2 ML VIAL ONE
--- NOTE | 2021-07-27 14:24 | KCIC ---
MRI LUMBAR SPINE WITHOUT AND WITH IV CONTRAST History: Reason: LUMBAR RADICULOPATHY / Spl. Instructions: 14c Clariscan. / History: Recent surgery on 07/10/21. Continued left hip pain and LLE numbness. Technique: Multiplanar, multi sequential MR imaging was performed of the lumbar spine. Comparison: May 17, 2021 Findings: Normal vertebral body height and alignment. No fracture. Mild degenerative endplate edema L4-5 and L5 -S1, unchanged. Interval postoperative changes left L5 inferior facetectomy. Lobulated fluid collection within the op erative defect in posterior paraspinal soft tissues, likely postoperative. Mild adjacent edema. There is postoperative enhancement within this region. Conus terminates at the normal location. No evidence of nerve root clumping. L1-L2: No canal or neuroforaminal narrowing. L2-L3: Small right paracentral disc extrusion. Mild right subarticular recess narrowing. No canal na rrowing. Mild facet arthropathy. Mild right neuroforaminal narrowing. L3-L4: Small disc bulge. Moderate facet arthropathy. No canal narrowing. Mild subarticular recess na rrowing. No neuroforaminal narrowing. L4-L5: Broad-based disc bulge. Moderate facet arthropathy. No canal narrowing. Mild subarticular rec ess narrowing. Mild bilateral neuroforaminal narrowing. L5-S1: Disc bulge with central disc protrusion with annular fissure. Interval postoperative changes left facetectomy. Moderate facet arthropathy. No canal narrowing. Subarticular recess narrowing. Mode rate to severe right and severe left neuroforaminal narrowing, increased compared to prior. Impression: 1. Interval postoperative changes L5-S1 with postoperative fluid collection posteriorly. 2. L5-S1 severe left and moderate to severe right neuroforaminal narrowing, increased compared to pr ior. 3. L2-L3 right subarticular disc extrusion with mild subarticular and neuroforaminal narrowing, decr eased compared to prior. Electronically signed by: Jorge Talley DO (07/27/2021 2:21 PM) [id number]
== END ==
LOC: KCIC MRI 10:55
PROVIDERS: ATTEND Neurological Surgery
DX: M51.27 Other intervertebral disc displacement, lumbosacral region (principal); M48.07 Spinal stenosis, lumbosacral region; M48.8X7 Other specified spondylopathies, lumbosacral region; R60.0 Localized edema; Z98.890 Other specified postprocedural states
CPT/HCPCS: 72158; A9575

== ENCOUNTER → 2021-08-04 | Outpatient (CLI) | payer MEDICAID ==
[2021-07-05 15:35] VITALS: BP 116/73
[~2021-08-04] MED LIST changes: +BLAC40CA PO; +BREO ELLIPTA 21 EACH IH; -GADOTERATE 7.5 MMOL/15ML VIAL. IVP ONE; +HYDR-2761 PO; +HYDR-2765 PO
--- NOTE | 2021-08-08 11:37 | OP ---
DATE OF SURGERY: 08/08/2021 PREOPERATIVE DIAGNOSES: Medial meniscal tear, anterior cruciate ligament tear, right knee. POSTOPERATIVE DIAGNOSES: Medial meniscal tear, lateral meniscal tear and anterior cruciate ligament tear, right knee. PROCEDURES: Right knee arthroscopy with partial medial meniscectomy, partial lateral meniscectomy, anterior cruciate ligament reconstruction with allograft. SURGEON: El Gary Jr, DO ANESTHESIA: General. COMPLICATIONS: None. ESTIMATED BLOOD LOSS: 30 mL. DESCRIPTION OF PROCEDURE: The patient was taken to the operative suite, given a general anesthetic. Right lower extremity was placed in a knee rivera, prepped and draped in a sterile fashion. The inferomedial and inferolateral portals were established. The knee was insufflated with saline. Visualization noted the patellofemoral joint to be intact, stable and tracking appropriately. No other abnormalities were noted at this time of the patellofemoral region. No chondral lesions. Scope was then taken into the medial and lateral gutters. No loose bodies were noted. Scope was then taken into the medial compartment. There was noted to be a complex tear of the posterior horn of the medial meniscus all the way to the mid substance of the meniscus. Therefore, using basket forceps and a shaver, a partial medial meniscectomy was undertaken. This was debrided back to stable tissue and after this, a partial medial meniscectomy was undertaken. Debridement revealed this to be stable. The scope was then taken into the intercondylar region. The ACL was noted to be torn, and actually, the proximal femoral attachment was scarred down to the PCL, which was completely intact at this point. This was debrided out completely at this point. Scope was then taken into the lateral compartment along the posterior horn. There was actually another tear of the meniscus. Since this was unstable with probing, partial lateral meniscectomy was undertaken using basket forceps and a shaver debriding this back to the stable tissue. Scope was then taken into the intercondylar region, where this has been previously debrided as far as the ACL was concerned. The ACL graft was then prepared on the back table and held with tensioning. This was noted to be a 9 mm. Therefore, the guide for the femoral system was placed on the lateral wall of the femur laterally and then a stab incision was made through skin and subcutaneous tissues and IT band laterally. This guide was then placed all the way down to the bone and then this was drilled with a RetroDrill. Once this was in the intra-articular portion, this was retrodrilled for 25 mm then was brought back out into the joint, flipped again and then the FlipCutter was removed and the TigerWire was placed with the suture. This was pulled through the inferolateral portal and held appropriately after the drill was noted of 25 mm tunnel in the femur. Attention was then directed to the tibia. The RetroCutter was then placed on the tibia and then a small stab wound was made through skin and subcutaneous tissues, centered along the area of the tibia off of the crest and then this was drilled. After capturing the RetroCutter, this was placed through to connect through to the tibial tunnel. This was cleared out on both the femoral and tibial sides of the joint. Then, the suture was placed through the tibial tunnel as well. The graft was taken off of tensioning and the graft sutures were then placed through along with the button through the femur. Once the button was on the outside of the femur and this was noted to be completely captured and stable and flipped, the sutures were then tightened with the white sutures to pull this back through the tibial tunnel and up into the femoral tunnel. This secured it safely within the femoral tunnel. Following this, the button was placed distally and the button was then tightened down on to the tibia. This was noted to be very stable. This was taken through multiple ranges of motion and then retightened again. This was then thoroughly irrigated. This was suctioned dry at this point. After probing noted the ACL to be completely stable, the sutures were then cut on the ends extraarticular. The superficial tissues and the skin was reapproximated. Sterile dressing was applied. The patient was then taken from the operative bed to the postoperative bed, taken to the PACU in stable condition. DIANDRA/KAYLIN DR: Lyndon TID: [id number]
== END ==
LOC: LAB 09:25
PROVIDERS: ATTEND Neurological Surgery
DX: Z01.812 Encounter for preprocedural laboratory examination (principal); Z20.822 Contact with and (suspected) exposure to COVID-19; S83.511A Sprain of anterior cruciate ligament of right knee, initial encounter; X58.XXXA Exposure to other specified factors, initial encounter; Y93.89 Activity, other specified; Y92.89 Other specified places as the place of occurrence of the external cause; Y99.8 Other external cause status
CPT/HCPCS: U0003; U0005

== ENCOUNTER 2021-08-08 06:11 | Day surgery (SDC) | payer MEDICAID ==
[~2021-08-08] VITALS: Ht 160 cm; Wt 69.0 kg
[~2021-08-08 06:11] MED LIST changes: +CLINDAMYCIN 900MG PREMIX 50 ML IV PRN; -HYDR-2765 PO; +HYDROmorphone 2 MG/ML VIAL IVP PRN; +IV RINGERS,LACTATED 1000ML 1,000 ML IV SCH; +MORPHINE SULFATE 2 MG/ML INJ. IVP PRN; +fentaNYL PF VIAL 100 MCG/2 ML VIAL IVP PRN
[2021-08-08 06:38] VITALS: BP 115/72
[2021-08-08] MEDS ORDERED: fentaNYL PF VIAL 100 MCG/2 ML VIAL ONE (06:56)
[2021-08-08] MEDS ORDERED: PROPOFOL 10 MG/ML (20ML) VIAL. IV ONE (06:56)
[2021-08-08] MEDS ORDERED: MIDAZOLAM HCL/PF 2 MG/2 ML VIAL. ONE (06:56)
[2021-08-08] MEDS ORDERED: LIDOCAINE 2% PF 5 ML VIAL. ONE (06:56)
[2021-08-08] MEDS ORDERED: BUPIVACAINE-EPI 0.25% 30 ML VIAL KIT. ONE (07:11)
[2021-08-08] MEDS ORDERED: ONDANSETRON PF 4 MG/2 ML VIAL. ONE (08:20)
[2021-08-08] MEDS ORDERED: SEVOFLURANE 31 TO 60 MINUTES. IH ONE (08:20)
[2021-08-08] MEDS ORDERED: DEXAMETHASONE SOD PHOS 4 MG/ML VIAL ONE (08:20)
[2021-08-08] MEDS ORDERED: HYDROmorphone 2 MG/ML VIAL ONE ×2 (08:28→10:39)
[2021-08-08] MEDS ORDERED: SEVOFLURANE 61 TO 120 MINUTES. IH ONE (09:08)
[2021-08-08] MEDS ORDERED: KETOROLAC 30 MG/ML VIAL. ONE (09:25)
--- NOTE | 2021-08-08 09:38 | PDOC4 ---
OPERATIVE NOTE Date: Date: Aug 08, 2021 Pre-Op Diagnosis: Medial meniscal tear ACL tear right knee Post-Op Diagnosis: Medial meniscal tear lateral meniscal tear ACL tear right knee Procedure Performed: Right knee arthroscopy with partial medial meniscectomy partial lateral meniscectomy ACL reconstruction with allograft Surgeon: Abdirahman Anesthesia Type: General Blood Loss: 30 cc Specimans Obtained: None Findings: See dictation Complications: None GUERRERO JEAN Jr. DO Aug 08, 2021 09:38
[2021-08-08] MEDS ORDERED: HYDR-2765 PO (09:45)
--- NOTE | 2021-08-08 09:47 | DISCH ---
DISCHARGE INSTRUCTIONS Condition on Discharge Condition on Discharge: Stable Activity After Discharge Activity Instructions for Disc: Avoid exertion Driving Instructions after Dis: Do not drive today, No driving for 2 weeks Weight Bearing Status after Di: Full weight bearing Wound Incision Care Wound/Incision Care: Ice to area for comfort, Keep wound elevated, Do not change dressing Follow-Up Follow up with: 10 to 14 days GUERRERO JEAN Jr. DO Aug 08, 2021 09:47
[2021-08-08] MEDS ORDERED: HYDROcodone/APAP 7.5/325MG 1 TAB TABLET PO ONE (10:45)
[2021-08-08] MEDS ORDERED: SCOPOLAMINE 1.5MG PATCH. TD ONE ×2 (10:55→11:15)
[2021-08-08] MEDS ORDERED: PROCHLORPERAZINE 10 MG/2 ML VIAL. ONE (12:29)
[2021-08-08] MEDS: PROCHLORPERAZINE 10 MG/2 ML VIAL. IVP PRN ×2 (12:31→12:32)
[2021-08-08 12:45] VITALS: BP 133/86
--- NOTE | 2021-08-08 12:52 | PREOP HP ---
DATE OF SERVICE: 08/08/2021 REASON FOR THE HISTORY AND PHYSICAL: Preoperatively for the right knee. HISTORY OF PRESENT ILLNESS: She is a 41-year-old female who has significant pain and instability to the right knee. The knee gives way on multiple episodes and causes her to fall. She has had no specific recent injury. Previous injuries were in the past with no specific one that she can remember significantly. However, continues with swelling and pain in the knee throughout. Her review of systems is unremarkable other than the right knee pain. MEDICAL HISTORY: Anxiety, history of drug abuse, COPD and asthma. PAST SURGICAL HISTORY: Cholecystectomy, and hysterectomy. FAMILY HISTORY: Liver carcinoma, lung carcinoma, mesothelioma. SOCIAL HISTORY: The patient does use tobacco approximately 6-10 cigarettes per day. Occasional alcohol use. MEDICATIONS: Numerous and are available from other histories and physicals and are not changed from that medication list absolutely from 06/24/2021. MEDICATION ALLERGIES: PENICILLIN AND CODEINE. PHYSICAL EXAMINATION: The patient is a 63 inches tall, 157 pounds. She has an effusion in the right knee, instability in the AP plane. No instability in the varus, valgus plane. There is also pain with palpation both medial and lateral joint lines, medial more than lateral. Positive Apley's test is to the medial and lateral compartments today. Range of motion 0-120 degrees of flexion pain throughout the arc of motion is mild. Distal neurovascular status is fully intact. No atrophy of musculature, right versus left. IMPRESSION: Anterior cruciate ligament tear, medial meniscal tear, right knee. PLAN: At this time, we will have her undergo right knee arthroscopy, partial medial meniscectomy, possible ACL reconstruction. We have already gone over the risks, complications as well as benefits and expectations of surgery, postoperative protocol and followup, we will proceed. CHRISTIANO DR: Lyndon TID: [id number]
--- NOTE | 2021-08-09 13:05 | OP ---
DATE OF SURGERY: 08/08/2021 PREOPERATIVE DIAGNOSES: Medial meniscal tear, anterior cruciate ligament tear, right knee. POSTOPERATIVE DIAGNOSES: Medial meniscal tear, lateral meniscal tear and anterior cruciate ligament tear, right knee. PROCEDURES: Right knee arthroscopy with partial medial meniscectomy, partial lateral meniscectomy, anterior cruciate ligament reconstruction with allograft. SURGEON: El Gary Jr, DO ANESTHESIA: General. COMPLICATIONS: None. ESTIMATED BLOOD LOSS: 30 mL. DESCRIPTION OF PROCEDURE: The patient was taken to the operative suite, given a general anesthetic. Right lower extremity was placed in a knee rivera, prepped and draped in a sterile fashion. The inferomedial and inferolateral portals were established. The knee was insufflated with saline. Visualization noted the patellofemoral joint to be intact, stable and tracking appropriately. No other abnormalities were noted at this time of the patellofemoral region. No chondral lesions. Scope was then taken into the medial and lateral gutters. No loose bodies were noted. Scope was then taken into the medial compartment. There was noted to be a complex tear of the posterior horn of the medial meniscus all the way to the mid substance of the meniscus. Therefore, using basket forceps and a shaver, a partial medial meniscectomy was undertaken. This was debrided back to stable tissue and after this, a partial medial meniscectomy was undertaken. Debridement revealed this to be stable. The scope was then taken into the intercondylar region. The ACL was noted to be torn, and actually, the proximal femoral attachment was scarred down to the PCL, which was completely intact at this point. This was debrided out completely at this point. Scope was then taken into the lateral compartment along the posterior horn. There was actually another tear of the meniscus. Since this was unstable with probing, partial lateral meniscectomy was undertaken using basket forceps and a shaver debriding this back to the stable tissue. Scope was then taken into the intercondylar region, where this has been previously debrided as far as the ACL was concerned. The ACL graft was then prepared on the back table and held with tensioning. This was noted to be a 9 mm. Therefore, the guide for the femoral system was placed on the lateral wall of the femur laterally and then a stab incision was made through skin and subcutaneous tissues and IT band laterally. This guide was then placed all the way down to the bone and then this was drilled with a RetroDrill. Once this was in the intra-articular portion, this was retrodrilled for 25 mm then was brought back out into the joint, flipped again and then the FlipCutter was removed and the TigerWire was placed with the suture. This was pulled through the inferolateral portal and held appropriately after the drill was noted of 25 mm tunnel in the femur. Attention was then directed to the tibia. The RetroCutter was then placed on the tibia and then a small stab wound was made through skin and subcutaneous tissues, centered along the area of the tibia off of the crest and then this was drilled. After capturing the RetroCutter, this was placed through to connect through to the tibial tunnel. This was cleared out on both the femoral and tibial sides of the joint. Then, the suture was placed through the tibial tunnel as well. The graft was taken off of tensioning and the graft sutures were then placed through along with the button through the femur. Once the button was on the outside of the femur and this was noted to be completely captured and stable and flipped, the sutures were then tightened with the white sutures to pull this back through the tibial tunnel and up into the femoral tunnel. This secured it safely within the femoral tunnel. Following this, the button was placed distally and the button was then tightened down on to the tibia. This was noted to be very stable. This was taken through multiple ranges of motion and then retightened again. This was then thoroughly irrigated. This was suctioned dry at this point. After probing noted the ACL to be completely stable, the sutures were then cut on the ends extraarticular. The superficial tissues and the skin was reapproximated. Sterile dressing was applied. The patient was then taken from the operative bed to the postoperative bed, taken to the PACU in stable condition. DIANDRA/KAYLIN DR: Lyndon TID: [id number]
== END 2021-08-08 12:45 | disposition home or self-care (01) ==
LOC: SURG 06:11
PROVIDERS: ATTEND Orthopaedic Surgery
DX: S83.241A Other tear of medial meniscus, current injury, right knee, initial encounter (principal); S83.511A Sprain of anterior cruciate ligament of right knee, initial encounter; J44.9 Chronic obstructive pulmonary disease, unspecified; M19.90 Unspecified osteoarthritis, unspecified site; F41.9 Anxiety disorder, unspecified; F32.9 Major depressive disorder, single episode, unspecified; F17.210 Nicotine dependence, cigarettes, uncomplicated; Z90.49 Acquired absence of other specified parts of digestive tract; Z90.710 Acquired absence of both cervix and uterus; Z98.890 Other specified postprocedural states; Z79.899 Other long term (current) drug therapy; Z88.0 Allergy status to penicillin; Z88.5 Allergy status to narcotic agent; Z88.8 Allergy status to other drugs, medicaments and biological substances; X58.XXXA Exposure to other specified factors, initial encounter; Y93.89 Activity, other specified; Y92.89 Other specified places as the place of occurrence of the external cause; Y99.8 Other external cause status
CPT/HCPCS: 29880; 29888; J0780; J1100; J1170; J1885; J2250; J2405; J2704; J3010; J3490; A4209; A4930; A6550; C1713